=== PATIENT | female | born 1975 | race Hispanic/Latino ===

== ENCOUNTER 2018-07-30 21:13 | Emergency (ER) | payer SELFPAY ==
[2018-07-30 21:26] VITALS: BP 134/81
[2018-07-31] MEDS ORDERED: ULTRAM PO ONE (00:28)
[2018-07-31] MEDS ORDERED: TRIMOX PO ONE (00:28)
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
== END 2018-07-31 01:37 | disposition home or self-care (01) ==
LOC: ED 21:13
DX: S16.1XXA Strain of muscle, fascia and tendon at neck level, initial encounter (principal); F17.200 Nicotine dependence, unspecified, uncomplicated; Z98.51 Tubal ligation status; V87.7XXA Person injured in collision between other specified motor vehicles (traffic), initial encounter; Y93.89 Activity, other specified; Y92.488 Other paved roadways as the place of occurrence of the external cause; Y99.8 Other external cause status
CPT/HCPCS: 72040; 99283

== ENCOUNTER 2018-09-27 08:41 | Emergency (ER) | payer OTHER ==
[2018-09-27 08:51] VITALS: BP 133/94
--- NOTE | 2018-09-27 10:02 | Emergency Department Report ---
- General Chief Complaint: Chest Pain Stated Complaint: CHEST PAIN Time Seen by Provider: 09/27/18 09:05 Source: patient Mode of arrival: Ambulatory Limitations: No Limitations - History of Present Illness Initial Comments: 43-year-old female who presents with a week's history of cough, fever, chest tightness. Patient states she was seen at [place] a few days ago, where a cardiac workup was done which was negative. Patient reports she had a normal CXR. Was given prescription for Naprosyn. Patient states she is now having throat pain and wants to get that checked out. MD Complaint: fever, cough, sore throat -: week(s) (1) Severity: mild Quality: aching Consistency: constant Improves With: nothing Associated Symptoms: fever, cough, chest pain - Related Data Previous Rx's Medication Instructions Recorded Last Taken Type Amoxicillin [Trimox CAP] 500 mg PO TID 10 Days #30 capsule 07/31/18 Unknown Rx Cyclobenzaprine [Flexeril] 10 mg PO BID PRN #20 tablet 07/31/18 Unknown Rx Naproxen 500 mg PO BID PRN #30 tablet 07/31/18 Unknown Rx Benzonatate [Tessalon Perles] 100 mg PO Q8HR PRN #20 capsule 09/27/18 Unknown Rx Allergies Allergy/AdvReac Type Severity Reaction Status Date / Time No Known Allergies Allergy Verified 09/27/18 08:43 ED Review of Systems ROS: Stated complaint: CHEST PAIN Other details as noted in HPI Comment: All other systems reviewed and negative Constitutional: fever ENT: throat pain Respiratory: cough Cardiovascular: chest pain Gastrointestinal: denies: vomiting, diarrhea Neurological: headache ED Past Medical Hx - Past Medical History Previous Medical History?: No - Surgical History Additional Surgical History: tubiligation - Social History Smoking Status: Current Every Day Smoker Substance Use Type: Alcohol - Medications Home Medications: Home Medications Medication Instructions Recorded Confirmed Last Taken Type Amoxicillin [Trimox CAP] 500 mg PO TID 10 Days #30 capsule 07/31/18 Unknown Rx Cyclobenzaprine [Flexeril] 10 mg PO BID PRN #20 tablet 07/31/18 Unknown Rx Naproxen 500 mg PO BID PRN #30 tablet 07/31/18 Unknown Rx Benzonatate [Tessalon Perles] 100 mg PO Q8HR PRN #20 capsule 09/27/18 Unknown Rx ED Physical Exam - General Limitations: No Limitations General appearance: alert, in no apparent distress - Head Head exam: Present: atraumatic, normocephalic - Eye Eye exam: Present: normal appearance - ENT ENT exam: Present: normal orophraynx, mucous membranes moist - Neck Neck exam: Present: normal inspection - Respiratory Respiratory exam: Present: normal lung sounds bilaterally. Absent: respiratory distress - Cardiovascular Cardiovascular Exam: Present: normal rhythm, tachycardia - GI/Abdominal GI/Abdominal exam: Present: soft. Absent: distended, tenderness - Extremities Exam Extremities exam: Present: normal inspection - Neurological Exam Neurological exam: Present: alert, oriented X3 - Psychiatric Psychiatric exam: Present: normal affect, normal mood - Skin Skin exam: Present: warm, dry, intact, normal color ED Course Vital Signs 09/27/18 08:49 Temperature 98.5 F Pulse Rate 114 H Respiratory 20 Rate Blood Pressure 133/94 O2 Sat by Pulse 97 Oximetry ED Medical Decision Making - EKG Data -: EKG Interpreted by [facility] EKG shows normal: sinus rhythm, axis, intervals, QRS complexes, ST-T waves Rate: tachycardia (rate 103) - EKG Data Interpretation: no acute changes - Differential Diagnosis flu, viral ilness, strep thraot Critical care attestation.: If time is entered above; I have spent that time in minutes in the direct care of this critically ill patient, excluding procedure time. ED Disposition Clinical Impression: URI (upper respiratory infection) Disposition: - TO HOME OR SELFCARE Is pt being admited?: No Condition: Stable Instructions: Upper Respiratory Infection (ED) Prescriptions: Benzonatate [Tessalon Perles] 100 mg PO Q8HR PRN #20 capsule PRN Reason: Cough Referrals: [facility] [Provider Group] - 3-5 Days Time of Disposition: 10:26
== END 2018-09-27 10:37 | disposition home or self-care (01) ==
LOC: ED 08:41
DX: J06.9 Acute upper respiratory infection, unspecified (principal); F17.200 Nicotine dependence, unspecified, uncomplicated
CPT/HCPCS: 87116; 87400; 87430; 93005; 93010

== ENCOUNTER 2019-02-10 14:57 | Emergency (ER) | payer SELFPAY ==
--- NOTE | 2019-02-10 15:24 | Event Note ---
ED Screening Note Date of service: 02/10/19 Time: 15:22 ED Screening Note: This initial assessment/diagnostic orders/clinical plan/treatment(s) is/are subject to change based on patients health status, clinical progression and re- assessment by fellow clinical providers in the ED. Further treatment and workup at subsequent clinical providers discretion. Patient/guardian urged not to elope from the ED as their condition may be serious if not clinically assessed and managed. Initial orders include:
[2019-02-10 15:26] VITALS: BP 161/96
--- NOTE | 2019-02-10 17:29 | Emergency Department Report ---
Abscess Boil HPI - HPI Chief Complaint: Skin/Abscess/Foreign Body Stated Complaint: LUMPS ON R LEG Time Seen by Provider: 02/10/19 15:22 Duration: >1 Week (1-1/2 weeks) Location: Perianal Severity: Moderate History: Yes Pain, Yes Insect Bite, No Fever, No Purulent Drainage, No Numbness, No Foreign Body, No Previous History HPI: This is a 44-year-old female who presents to the emergency room with abscess to right thigh 3. She reports initially it started out as 3 small bumps to lateral thigh. Now there is increasing pain, redness, and pain is worse with sitting. She denies drainage, fever, numbness or tingling. Home Medications: Previous Rx's Medication Instructions Recorded Last Taken Type Amoxicillin [Trimox CAP] 500 mg PO TID 10 Days #30 capsule 07/31/18 Unknown Rx Cyclobenzaprine [Flexeril] 10 mg PO BID PRN #20 tablet 07/31/18 Unknown Rx Naproxen 500 mg PO BID PRN #30 tablet 07/31/18 Unknown Rx Benzonatate [Tessalon Perles] 100 mg PO Q8HR PRN #20 capsule 09/27/18 Unknown Rx Clindamycin [Clindamycin CAP] 300 mg PO Q8H #21 capsule 02/10/19 Unknown Rx Naproxen [Naprosyn] 500 mg PO BID PRN #20 tablet 02/10/19 Unknown Rx Allergies/Adverse Reactions: Allergies Allergy/AdvReac Type Severity Reaction Status Date / Time No Known Allergies Allergy Verified 09/27/18 08:43 ED Review of Systems ROS: Stated complaint: LUMPS ON R LEG Other details as noted in HPI Constitutional: no symptoms reported Respiratory: denies: cough, shortness of breath, wheezing Cardiovascular: denies: chest pain, palpitations Skin: lesions (right lateral thigh). denies: rash Neurological: denies: headache, weakness, paresthesias Psychiatric: denies: anxiety, depression ED Past Medical Hx - Past Medical History Previous Medical History?: Yes Hx Psychiatric Treatment: Yes (PTSD) - Surgical History Past Surgical History?: Yes Additional Surgical History: tubiligation - Social History Smoking Status: Heavy Tobacco Smoker Substance Use Type: Alcohol - Medications Home Medications: Home Medications Medication Instructions Recorded Confirmed Last Taken Type Amoxicillin [Trimox CAP] 500 mg PO TID 10 Days #30 capsule 07/31/18 Unknown Rx Cyclobenzaprine [Flexeril] 10 mg PO BID PRN #20 tablet 07/31/18 Unknown Rx Naproxen 500 mg PO BID PRN #30 tablet 07/31/18 Unknown Rx Benzonatate [Tessalon Perles] 100 mg PO Q8HR PRN #20 capsule 09/27/18 Unknown Rx Clindamycin [Clindamycin CAP] 300 mg PO Q8H #21 capsule 02/10/19 Unknown Rx Naproxen [Naprosyn] 500 mg PO BID PRN #20 tablet 02/10/19 Unknown Rx ED Abscess Boil Physical Exam - Exam General: Vital signs noted. No distress. Alert and acting appropriately. Front/Back of Body, Lg (Color): 1 - 1 cm in size erythematous areas x 3 to right lateral femur, tenderness to palpation with no pus pockets palpated, surrounding cellulitis Size: 1 cm Exam: Yes Tenderness, Yes Surrounding Cellulites/Erythema, Yes Normal Neurologic Exam, Yes Normal Circulation, No Fluctuance, No Lymphangitis, No Crepitation, No Heart Murmur ED Course Vital Signs 02/10/19 15:20 Temperature 98.2 F Pulse Rate 86 Respiratory 16 Rate Blood Pressure 161/96 O2 Sat by Pulse 97 Oximetry Critical care attestation.: If time is entered above; I have spent that time in minutes in the direct care of this critically ill patient, excluding procedure time. ED Medical Decision Making - Medical Decision Making Patient is stable and examined by me. No acute signs of distress noted. On physical exam there are findings of 1 cm in size erythematous areas x 3, tenderness to palpation with no pus pockets. An I&D is not indicated at this time. Discussed plan to start clindamycin and naproxen with patient. Instructed to do warm compresses to aid in disbursement of fluid. Checked his to have wall reassessed by primary care doctor in 3-4 days or return to the emergency room if worsening symptoms. Patient agrees to ED plan of care. Discharged home and follow up with PCP in 2-3 days. ED Disposition Clinical Impression: Abscess or cellulitis of thigh Disposition: DC- TO HOME OR SELFCARE Is pt being admited?: No Does the pt Need Aspirin: No Condition: Stable Instructions: Abscess (ED), Cellulitis (ED) Additional Instructions: Complete full round of antibiotics as prescribed. Follow up with PCP in 2-3 days. Return to ER if worsening symptoms or no improvement of swelling. Prescriptions: Clindamycin [Clindamycin CAP] 300 mg PO Q8H #21 capsule Naproxen [Naprosyn] 500 mg PO BID PRN #20 tablet PRN Reason: Pain, Moderate (4-6) Referrals: [facility] [Outside] - 3-5 Days [facility] [Outside] - 3-5 Days [facility] [Outside] - 3-5 Days Forms: Work/School Release Form(ED) Time of Disposition: 17:33
== END 2019-02-10 17:39 | disposition home or self-care (01) ==
LOC: ED 14:57
DX: L02.415 Cutaneous abscess of right lower limb (principal)
CPT/HCPCS: 99282